=== PATIENT | male | born 1945 | race Caucasian/White ===

== ENCOUNTER 2018-05-29 16:25 | Inpatient (IN) | payer MEDICARE ==
[~2018-05-29] VITALS: Ht 190.5 cm; Wt 79.4 kg
[~2018-05-29 16:25] MED LIST: CLON2 PO; HYDR-3971 PO; IBUP-2354 PO; RANI150T7 PO
[2018-05-29 20:25] VITALS: BP 123/73
[2018-05-29] MEDS ORDERED: IPRATROPIUM BROMIDE 0.5 MG/2.5 ML NEB SOLUTION NEB PRN (20:30)
[2018-05-29] MEDS: DOCUSATE SODIUM 100 MG CAPSULE PO SCH (21:00)
[2018-05-29] MEDS: SENNA 187 MG TABLET PO SCH (21:00)
[2018-05-29] MEDS ORDERED: ALBUTEROL SULFATE 2.5 MG/0.5 ML NEB SOLUTION NEB PRN (21:00)
[2018-05-29] MEDS ORDERED: CALCIUM CIT/VITAMIN D3 200 MG-250 UNITS TABLET PO SCH (21:00)
[2018-05-29] MEDS ORDERED: ACETAMINOPHEN 325 MG TABLET PO SCH (21:00)
[2018-05-29] MEDS ORDERED: CALCIUM CIT/VITAMIN D3 200 MG-250 UNITS TABLET PO PRN (21:00)
[2018-05-29] MEDS ORDERED: DEXTROSE 50%-WATER 25 GM/50 ML SYRINGE IVP PRN (21:15)
[2018-05-29] MEDS: MELATONIN 5 MG TABLET PO PRN (21:53)
[2018-05-29] MEDS: INSULIN LISPRO 100 UNITS/ML SQ PRN (22:04)
[2018-05-29] MEDS: OxyCODONE HCL 10 MG IR TABLET PO PRN (22:18)
[2018-05-29 22:23] LABS: GLUCOMETER DEV NAME(LOC) 2WR.1; GLUCOSE,POINT OF CARE 165 MG/DL (70-110)
[2018-05-29 23:16] VITALS: BP 104/70
[2018-05-30] MEDS ORDERED: NALOXONE HCL 0.4 MG/ML VIAL IM PRN (00:15)
[2018-05-30] MEDS: OxyCODONE HCL 10 MG IR TABLET PO PRN ×3 (05:20→21:35)
[2018-05-30 05:26] LABS: BASOPHILS % (AUTO) 1.4 % (0.0-2.0); EOSINOPHILS % (AUTO) 3.7 % (1.0-6.0); HEMOGLOBIN 10.9 g/dL (13.5-17.5); LYMPHOCYTES # (AUTO) 1.4 K/uL (1.0-4.8); LYMPHOCYTES % (AUTO) 22.5 % (22.0-44.0); MEAN CORPUSCULAR HEMOGLOBIN 29.7 pg (26.0-34.0); MEAN CORPUSCULAR VOLUME 87 fL (80-100); MONOCYTES # (AUTO) 0.7 K/uL (0.1-1.0); MONOCYTES % (AUTO) 10.7 % (2.0-9.0); NEUTROPHILS # (AUTO) 3.8 K/uL (1.8-7.7); NEUTROPHILS % (AUTO) 61.7 % (40.0-70.0); PLATELET COUNT (AUTO) 501 K/uL (150-450); RED BLOOD CELL COUNT(AUTO) 3.67 MIL/uL (4.50-5.90); RED CELL DISTRIBUTION WIDTH 16.7 % (11.5-14.5)
[2018-05-30 05:39] LABS: GLUCOMETER DEV NAME(LOC) 2WR.2; GLUCOSE,POINT OF CARE 138 MG/DL (70-110)
[2018-05-30 05:49] LABS: ALBUMIN 2.7 g/dL (3.4-5.0); BILIRUBIN,TOTAL 0.3 mg/dL (0.1-1.0); CALCIUM, TOTAL 9.8 mg/dL (8.8-10.5); CREATININE 1.25 mg/dL (0.60-1.30); POTASSIUM 5.3 mmol/L (3.5-5.1); TOTAL PROTEIN, SERUM 8.3 g/dL (6.4-8.2)
[2018-05-30 07:46] VITALS: BP 129/78
[2018-05-30] MEDS: DOCUSATE SODIUM 100 MG CAPSULE PO SCH ×3 (08:42→21:00)
[2018-05-30] MEDS: METOPROLOL SUCCINATE 50 MG ER TABLET PO SCH (08:42)
[2018-05-30] MEDS: LORATADINE 10 MG TABLET PO SCH ×2 (08:42→09:00)
[2018-05-30] MEDS: TraMADol HCL 50 MG TABLET PO PRN (08:43)
[2018-05-30 12:44] LABS: GLUCOMETER DEV NAME(LOC) 2WR.2; GLUCOSE,POINT OF CARE 95 MG/DL (70-110)
[2018-05-30 16:10] VITALS: BP 110/65
[2018-05-30 17:29] LABS: GLUCOMETER DEV NAME(LOC) 2WR.2; GLUCOSE,POINT OF CARE 122 MG/DL (70-110)
[2018-05-30] MEDS: SENNA 187 MG TABLET PO SCH (21:00)
[2018-05-30] MEDS: MELATONIN 5 MG TABLET PO PRN (21:35)
[2018-05-30] MEDS: INSULIN LISPRO 100 UNITS/ML SQ PRN (21:41)
[2018-05-30 22:24] LABS: GLUCOMETER DEV NAME(LOC) 2WR.2; GLUCOSE,POINT OF CARE 163 MG/DL (70-110)
[2018-05-31] VITALS: BP 109/63
[2018-05-31 06:25] LABS: GLUCOMETER DEV NAME(LOC) 2WR.1; GLUCOSE,POINT OF CARE 121 MG/DL (70-110)
[2018-05-31] MEDS: OxyCODONE HCL 10 MG IR TABLET PO PRN ×3 (06:41→20:48)
[2018-05-31 07:42] VITALS: BP 113/63
[2018-05-31] MEDS: LORATADINE 10 MG TABLET PO SCH (08:25)
[2018-05-31] MEDS: DOCUSATE SODIUM 100 MG CAPSULE PO SCH ×2 (08:26→20:48)
[2018-05-31] MEDS: METOPROLOL SUCCINATE 50 MG ER TABLET PO SCH (08:26)
[2018-05-31] MEDS: ACETAMINOPHEN 325 MG TABLET PO PRN (08:35)
[2018-05-31] MEDS: TraMADol HCL 50 MG TABLET PO PRN (10:08)
[2018-05-31 14:14] LABS: GLUCOMETER DEV NAME(LOC) 2WR.1; GLUCOSE,POINT OF CARE 117 MG/DL (70-110)
[2018-05-31 15:35] VITALS: BP 116/65
[2018-05-31 17:34] LABS: GLUCOMETER DEV NAME(LOC) 2WR.2; GLUCOSE,POINT OF CARE 104 MG/DL (70-110)
[2018-05-31] MEDS: SENNA 187 MG TABLET PO SCH (20:48)
[2018-05-31] MEDS: MELATONIN 5 MG TABLET PO PRN (20:48)
[2018-05-31] MEDS ORDERED: CALCIUM CARBONATE 500 MG CHEWABLE TABLET CHEW PRN (21:00)
[2018-05-31 21:49] LABS: GLUCOMETER DEV NAME(LOC) 2WR.2; GLUCOSE,POINT OF CARE 116 MG/DL (70-110)
[2018-05-31] MEDS ORDERED: DIPH50 PO (23:49)
[2018-05-31] MEDS ORDERED: NAPR-1142 PO (23:49)
[2018-05-31] MEDS ORDERED: CEFA500C3 PO (23:49)
[2018-06-01 00:45] VITALS: BP 113/67
[2018-06-01] MEDS: OxyCODONE HCL 10 MG IR TABLET PO PRN ×3 (05:19→20:27)
[2018-06-01 05:39] LABS: GLUCOMETER DEV NAME(LOC) 2WR.2; GLUCOSE,POINT OF CARE 118 MG/DL (70-110)
[2018-06-01 07:10] VITALS: BP 129/66
[2018-06-01] MEDS: DOCUSATE SODIUM 100 MG CAPSULE PO SCH ×3 (08:21→20:28)
[2018-06-01] MEDS: LORATADINE 10 MG TABLET PO SCH ×2 (08:22→08:32)
[2018-06-01] MEDS: METOPROLOL SUCCINATE 50 MG ER TABLET PO SCH (08:22)
[2018-06-01] MEDS: TraMADol HCL 50 MG TABLET PO PRN (08:29)
[2018-06-01] MEDS ORDERED: MetFORMIN HCL 500 MG TABLET PO PRN (10:30)
[2018-06-01 13:14] LABS: GLUCOMETER DEV NAME(LOC) 2WR.2; GLUCOSE,POINT OF CARE 100 MG/DL (70-110)
[2018-06-01] MEDS: TRIAMCINOLONE 0.5% 15 GM OINTMENT TP SCH ×2 (16:05→20:29)
[2018-06-01 16:34] VITALS: BP 106/56
[2018-06-01 20:23] LABS: GLUCOMETER DEV NAME(LOC) 2WR.1; GLUCOSE,POINT OF CARE 119 MG/DL (70-110)
[2018-06-01] MEDS: MELATONIN 5 MG TABLET PO PRN (20:27)
[2018-06-01] MEDS: SENNA 187 MG TABLET PO SCH (20:28)
[2018-06-01 22:19] LABS: GLUCOMETER DEV NAME(LOC) 2WR.1; GLUCOSE,POINT OF CARE 116 MG/DL (70-110)
[2018-06-02 00:29] VITALS: BP 109/62
[2018-06-02] MEDS: OxyCODONE HCL 10 MG IR TABLET PO PRN ×3 (05:30→20:07)
[2018-06-02 06:24] LABS: GLUCOMETER DEV NAME(LOC) 2WR.1; GLUCOSE,POINT OF CARE 124 MG/DL (70-110)
[2018-06-02 07:26] VITALS: BP 111/65
[2018-06-02] MEDS: METOPROLOL SUCCINATE 50 MG ER TABLET PO SCH ×2 (07:58→12:03)
[2018-06-02] MEDS: DOCUSATE SODIUM 100 MG CAPSULE PO SCH ×2 (07:58→20:05)
[2018-06-02] MEDS: TRIAMCINOLONE 0.5% 15 GM OINTMENT TP SCH ×3 (09:51→20:06)
[2018-06-02] MEDS: ACETAMINOPHEN 325 MG TABLET PO PRN (09:52)
[2018-06-02 12:04] LABS: GLUCOMETER DEV NAME(LOC) 2WR.1; GLUCOSE,POINT OF CARE 155 MG/DL (70-110)
[2018-06-02 16:17] VITALS: BP 112/54
[2018-06-02 17:55] LABS: GLUCOMETER DEV NAME(LOC) 2WR.2; GLUCOSE,POINT OF CARE 155 MG/DL (70-110)
[2018-06-02] MEDS: MetFORMIN HCL 500 MG TABLET PO PRN (18:37)
[2018-06-02] MEDS: SENNA 187 MG TABLET PO SCH (20:06)
[2018-06-02] MEDS: MELATONIN 5 MG TABLET PO PRN (20:06)
[2018-06-03 02:48] VITALS: BP 108/56
[2018-06-03] MEDS: OxyCODONE HCL 10 MG IR TABLET PO PRN ×3 (05:11→19:07)
[2018-06-03 05:59] LABS: GLUCOMETER DEV NAME(LOC) 2WR.2; GLUCOSE,POINT OF CARE 122 MG/DL (70-110)
[2018-06-03 07:24] VITALS: BP 105/63
[2018-06-03] MEDS: ACETAMINOPHEN 325 MG TABLET PO PRN ×2 (07:28→15:36)
[2018-06-03] MEDS: DOCUSATE SODIUM 100 MG CAPSULE PO SCH ×2 (09:00→20:13)
[2018-06-03] MEDS: TRIAMCINOLONE 0.5% 15 GM OINTMENT TP SCH (09:00)
[2018-06-03] MEDS ORDERED: TRIAMCINOLONE 0.5% 15 GM OINTMENT TP PRN (13:15)
[2018-06-03 15:28] VITALS: BP 113/63
[2018-06-03 17:09] LABS: GLUCOMETER DEV NAME(LOC) 2WR.1; GLUCOSE,POINT OF CARE 116 MG/DL (70-110)
[2018-06-03] MEDS: MELATONIN 5 MG TABLET PO PRN (20:12)
[2018-06-03] MEDS: SENNA 187 MG TABLET PO SCH (20:13)
[2018-06-04 02:53] VITALS: BP 116/66
[2018-06-04] MEDS: OxyCODONE HCL 10 MG IR TABLET PO PRN ×3 (02:53→16:28)
[2018-06-04] MEDS: ACETAMINOPHEN 325 MG TABLET PO PRN ×2 (05:46→20:25)
[2018-06-04 05:54] LABS: GLUCOMETER DEV NAME(LOC) 2WR.1; GLUCOSE,POINT OF CARE 126 MG/DL (70-110)
[2018-06-04 07:30] VITALS: BP 119/61
[2018-06-04] MEDS: METOPROLOL SUCCINATE 50 MG ER TABLET PO SCH (08:15)
[2018-06-04] MEDS: DOCUSATE SODIUM 100 MG CAPSULE PO SCH ×2 (08:18→20:25)
[2018-06-04] MEDS ORDERED: IBUPROFEN 600 MG TABLET PO PRN (11:45)
[2018-06-04 15:30] VITALS: BP 143/60
[2018-06-04 17:40] LABS: GLUCOMETER DEV NAME(LOC) 2WR.1; GLUCOSE,POINT OF CARE 149 MG/DL (70-110)
[2018-06-04] MEDS: MetFORMIN HCL 500 MG TABLET PO PRN (18:26)
[2018-06-04] MEDS: SENNA 187 MG TABLET PO SCH (20:25)
[2018-06-04] MEDS: MELATONIN 5 MG TABLET PO PRN (20:25)
[2018-06-05 04:57] VITALS: BP 116/61
[2018-06-05] MEDS: OxyCODONE HCL 10 MG IR TABLET PO PRN ×2 (04:57→12:07)
[2018-06-05 05:49] LABS: GLUCOMETER DEV NAME(LOC) 2WR.2; GLUCOSE,POINT OF CARE 132 MG/DL (70-110)
[2018-06-05 07:16] VITALS: BP 108/54
[2018-06-05] MEDS: ACETAMINOPHEN 325 MG TABLET PO PRN (08:35)
[2018-06-05] MEDS: METOPROLOL SUCCINATE 50 MG ER TABLET PO SCH (08:35)
[2018-06-05] MEDS: ASPIRIN 81 MG CHEWABLE TABLET PO SCH (08:35)
[2018-06-05] MEDS: DOCUSATE SODIUM 100 MG CAPSULE PO SCH ×3 (08:38→20:07)
[2018-06-05 14:04] LABS: GLUCOMETER DEV NAME(LOC) 2WR.1; GLUCOSE,POINT OF CARE 103 MG/DL (70-110)
[2018-06-05 16:29] VITALS: BP 115/63
[2018-06-05] MEDS: HYDROCODONE/ACETAMINOPHEN 5-325 MG TABLET PO PRN (18:32)
[2018-06-05] MEDS: MELATONIN 5 MG TABLET PO PRN (20:04)
[2018-06-05] MEDS: SENNA 187 MG TABLET PO SCH (20:04)
[2018-06-05 20:08] LABS: GLUCOMETER DEV NAME(LOC) 2WR.2; GLUCOSE,POINT OF CARE 113 MG/DL (70-110)
[2018-06-06 04:00] VITALS: BP 110/63
[2018-06-06] MEDS: HYDROCODONE/ACETAMINOPHEN 5-325 MG TABLET PO PRN (04:00)
[2018-06-06 06:09] VITALS: BP 120/64
[2018-06-06 06:15] LABS: GLUCOMETER DEV NAME(LOC) 2WR.2; GLUCOSE,POINT OF CARE 131 MG/DL (70-110)
[2018-06-06] MEDS: METOPROLOL SUCCINATE 50 MG ER TABLET PO SCH (06:43)
[2018-06-06] MEDS: ASPIRIN 81 MG CHEWABLE TABLET PO SCH (06:44)
[2018-06-06] MEDS: DOCUSATE SODIUM 100 MG CAPSULE PO SCH ×2 (06:45→20:14)
[2018-06-06 07:09] VITALS: BP 113/58
[2018-06-06] MEDS ORDERED: HYDROCODONE/ACETAMINOPHEN 10-325 MG TABLET PO PRN (11:15)
[2018-06-06] MEDS: HYDROCODONE/ACETAMINOPHEN 10-325 MG TABLET PO PRN ×2 (11:23→17:22)
[2018-06-06 17:17] VITALS: BP 118/63
[2018-06-06 18:04] LABS: GLUCOMETER DEV NAME(LOC) 2WR.2; GLUCOSE,POINT OF CARE 107 MG/DL (70-110)
[2018-06-06] MEDS: MELATONIN 5 MG TABLET PO PRN (20:13)
[2018-06-06] MEDS: SENNA 187 MG TABLET PO SCH (20:14)
[2018-06-07] MEDS ORDERED: IBUP-2354 PO (02:20)
[2018-06-07] MEDS ORDERED: METF-960 PO (02:20)
[2018-06-07] MEDS ORDERED: DSS100 PO (02:20)
[2018-06-07] MEDS ORDERED: ASPI-1182 PO (02:20)
[2018-06-07] MEDS ORDERED: METO-558 PO (02:20)
[2018-06-07 04:52] VITALS: BP 119/65
[2018-06-07] MEDS: HYDROCODONE/ACETAMINOPHEN 10-325 MG TABLET PO PRN ×2 (04:52→08:51)
[2018-06-07 06:19] LABS: GLUCOMETER DEV NAME(LOC) 2WR.1; GLUCOSE,POINT OF CARE 122 MG/DL (70-110)
[2018-06-07 07:47] VITALS: BP 114/60
[2018-06-07 08:15] VITALS: BP 111/59
== END 2018-06-07 09:00 | disposition home or self-care (01) | DRG 560 ==
LOC: 2WR 20:10
PROVIDERS: ADMIT Physical Medicine & Rehabilitation; ATTEND Physical Medicine & Rehabilitation
DX: T84.53XA Infection and inflammatory reaction due to internal right knee prosthesis, initial encounter (principal); I13.0 Hypertensive heart and chronic kidney disease with heart failure and stage 1 through stage 4 chronic kidney disease, or unspecified chronic kidney disease; I50.22 Chronic systolic (congestive) heart failure; N17.9 Acute kidney failure, unspecified; I48.92 Unspecified atrial flutter; D64.9 Anemia, unspecified; E11.22 Type 2 diabetes mellitus with diabetic chronic kidney disease; G25.81 Restless legs syndrome; G47.00 Insomnia, unspecified; I48.0 Paroxysmal atrial fibrillation; N18.9 Chronic kidney disease, unspecified; Z85.038 Personal history of other malignant neoplasm of large intestine; Z85.46 Personal history of malignant neoplasm of prostate; Z87.891 Personal history of nicotine dependence; Z89.611 Acquired absence of right leg above knee; Z90.49 Acquired absence of other specified parts of digestive tract; Z91.19 Patient's noncompliance with other medical treatment and regimen
CPT/HCPCS: 84132; 87081; 93005; 93306; 93970; 93971; 97110; 97112; 97116; 97150; 97163; 97166; 97530; 97535; 99366